=== PATIENT | male | born 2000 | race Caucasian/White ===

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

== ENCOUNTER 2022-01-16 17:30 | Inpatient (IN) ==
[2022-01-17 01:15] LABS: ABS Basophils 0.1 10^3/ul (0-0.2); ABS Eosinophils 0.5 10^3/ul (0-0.6); ABS Lymphocytes 2.2 10^3/ul (1.0-4.8); ABS Monocytes 0.5 10^3/ul (0-0.8); ABS Neutrophils 2.6 10^3/ul (1.5-7.7); Eosinophil % 8.7 %; Hematocrit 47 % (42-52); Hemoglobin 16.1 g/dL (14.0-18.0); Lymphocyte % 37.6 %; Mean Corpuscular HGB Conc 34 g/dL (31-36); Mean Corpuscular Hemoglobin 27 pg (27-31); Mean Corpuscular Volume 80 fL (80-94); Mean Platelet Volume 8.5 fL (7.4-10.4); Nucleated Red Blood Cells % 0.1; Platelet Count 191 10^3/uL (150-450); Red Blood Count 5.89 10^6 /uL (4.18-5.48); Red Cell Distribution Width 13 % (10-15); White Blood Count 5.8 10^3/uL (3.5-10.8)
[2022-01-17 01:47] LABS: Albumin 4.5 g/dL (3.2-5.2); CO2 Carbon Dioxide 25 mmol/L (22-32); Calcium 10.1 mg/dL (8.6-10.3); Chloride 105 mmol/L (101-111); Sodium 137 mmol/L (135-145)
[2022-01-17 01:53] LABS: ALT 29 U/L (7-52); Acetaminophen < 15 mcg/mL; Albumin/Globulin Ratio 1.8 (1-3); Alcohol, S < 13 mg/dL (<13); Alkaline Phosphatase 59 U/L (35-149); Blood Urea Nitrogen 13 mg/dL (6-24); Globulin 2.5 g/dL (2-4); Glucose 149 mg/dL (70-100); Salicylate < 2.50 mg/dL (<30); eGFR CKD-EPI 113.9 (>60)
[2022-01-17 01:56] LABS: Anion Gap 7 mmol/L (2-11)
[2022-01-17 02:23] LABS: TSH Ultra Thyroid Stim Horm 2.43 mcIU/mL (0.34-5.60)
[2022-01-17 05:45] LABS: Urine Appearance Clear; Urine Bilirubin Negative (Negative); Urine Blood Negative (Negative); Urine Color Yellow; Urine Glucose Negative (Negative); Urine Ketones 1+ (Negative); Urine Nitrite Negative (Negative); Urine Protein Negative (Negative); Urine Specific Gravity 1.015 (1.002-1.030); Urine Urobilinogen Negative (Negative)
[2022-01-17] MEDS ORDERED: Al Hydrox/Mg Hydrox/Simet LIQ 30 ML UDC PO PRN (05:49)
[2022-01-17 06:14] LABS: Urine Benzodiazepine Screen Presumptive Positive (None Detect); Urine Cannabinoids Screen Presumptive Positive (None Detect); Urine Opiates Screen None Detected (None Detect)
[2022-01-17] MEDS: Vitamin THERAPEUTIC TAB PO SCH (10:10)
[2022-01-17] MEDS: PTO: Albuterol HFA INHALER 8 gm MDI INH PRN (17:05)
[2022-01-18] MEDS: Vitamin THERAPEUTIC TAB PO SCH (07:23)
[2022-01-18 07:51] LABS: HDL Cholesterol 29.6 mg/dL
[2022-01-18] MEDS: PTO: Albuterol HFA INHALER 8 gm MDI INH PRN (20:20)
[2022-01-19] MEDS: Vitamin THERAPEUTIC TAB PO SCH (11:23)
[2022-01-20] MEDS: Vitamin THERAPEUTIC TAB PO SCH (10:47)
[2022-01-21 08:19] VITALS: BP 142/76
[2022-01-21] MEDS: Vitamin THERAPEUTIC TAB PO SCH (10:28)
== END 2022-01-21 11:45 | disposition home or self-care (01) | DRG 751 ==
LOC: ED 17:30 → EDHOLD 01-17 04:45 → BSU 01-17 09:15
PROVIDERS: ADMIT Psychiatry & Neurology Psychiatry; ATTEND Psychiatry & Neurology Psychiatry